=== PATIENT | female | born 2000 | race American Indian/Alaskan Native ===

== ENCOUNTER 2018-12-18 20:31 | Emergency (ER) | payer MEDICAID ==
[2018-12-18 20:43] VITALS: BP 123/73
--- NOTE | 2018-12-18 21:13 | Emergency Department Report ---
Blank Doc - Documentation Documentation: This is a 18-year-old female that presents pelvic pain. Is about 7 weeks preg nant with twins. Reggie any vaginal bleeding. Stated had a normal US yesterday by her OB. This initial assessment/diagnostic orders/clinical plan/treatment(s) is/are subject to change based on patient's health status, clinical progression and re- assessment by fellow clinical providers in the ED. Further treatment and workup at subsequent clinical providers discretion. Patient/guardians urged not to elope from the ED as their condition may be serious if not clinically assessed and managed. Initial orders include: 1- Patient sent to [facility] for further evaluation and treatment 2- labs 3- UA
[2018-12-18 21:44] LABS: Basophils % (Auto) 0.2 % (0.0-1.8); Eosinophils # (Auto) 0.1 K/mm3 (0.0-0.4); Eosinophils % (Auto) 1.5 % (0.0-4.3); Hematocrit 33.8 % (30.3-42.9); Hemoglobin 10.9 gm/dl (10.1-14.3); Lymphocytes # (Auto) 1.4 K/mm3 (1.2-5.4); Lymphocytes % (Auto) 35.5 % (13.4-35.0); Mean Corpuscular HGB Conc 32 % (30-34); Mean Corpuscular Volume 73 fl (79-97); Monocytes # (Auto) 0.3 K/mm3 (0.0-0.8); Monocytes % (Auto) 7.7 % (0.0-7.3); Platelet Count 215 K/mm3 (140-440); Red Blood Count 4.66 M/mm3 (3.65-5.03); Red Cell Distribution Width 15.9 % (13.2-15.2)
[2018-12-18 22:00] LABS: BUN/Creatinine Ratio 15; Blood Urea Nitrogen 9 mg/dL (7-17); Calcium 8.8 mg/dL (8.4-10.2); Hemolysis Index 4
--- NOTE | 2018-12-18 23:00 | Emergency Department Report ---
ED Female HPI - General Chief complaint: Abdominal Pain Stated complaint: ABD PAIN 7 WKS Time Seen by Provider: 12/18/18 21:11 Source: patient Mode of arrival: Ambulatory Limitations: No Limitations - History of Present Illness Initial comments: This is a 18-year-old who presents at approximately 7 weeks gestation with twin gestation. Patient states that pain started today. She states she was seen by her [employer] office yesterday and got her first ultrasound. Patient describes pain as sharp stabbing patient denies dysuria, vaginal bleeding, any abdominal trauma. Patient states she was recently treated for UTI and just completed the antibiotic dose. - Related Data Previous Rx's Medication Instructions Recorded Last Taken Type Acetaminophen [Acetaminophen ER] 650 mg PO Q6H #30 tablet.er 12/18/18 Unknown Rx Pnv No.121/Iron/Folic Acid 1 each PO DAILY #40 tablet 12/18/18 Unknown Rx [ Multivitamin Tablet] Allergies Allergy/AdvReac Type Severity Reaction Status Date / Time No Known Allergies Allergy Unverified 12/18/18 20:41 ED Review of Systems ROS: Stated complaint: ABD PAIN 7 WKS Other details as noted in HPI Constitutional: denies: chills, fever Eyes: denies: eye pain, eye discharge, vision change ENT: denies: ear pain, throat pain Respiratory: denies: cough, shortness of breath, wheezing Cardiovascular: denies: chest pain, palpitations Endocrine: no symptoms reported Gastrointestinal: denies: abdominal pain, nausea, diarrhea Genitourinary: denies: urgency, dysuria, discharge Musculoskeletal: denies: back pain, joint swelling, arthralgia Skin: denies: rash, lesions Neurological: denies: headache, weakness, paresthesias Psychiatric: denies: anxiety, depression Hematological/Lymphatic: denies: easy bleeding, easy bruising ED Past Medical Hx - Past Medical History Hx Hypertension: No Hx CVA: No Hx Heart Attack/AMI: No Hx Congestive Heart Failure: No Hx Diabetes: No Hx Deep Vein Thrombosis: No Hx Pulmonary Embolism: No Hx GERD: No Hx Liver Disease: No Hx Renal Disease: No Hx of Cancer: No Hx Arthritis: No Hx Headaches / Migraines: No Hx Seizures: No Hx Kidney Stones: No Hx Psychiatric Treatment: No Hx Asthma: No Hx COPD: No Hx Tuberculosis: No Hx Dementia: No Hx HIV: No Additional medical history: Right ovarian cyst - Surgical History Past Surgical History?: No Hx Coronary Stent: No Hx Open Heart Surgery: No Hx Pacemaker: No Hx Internal Defibrillator: No Hx Cholecystectomy: No Hx Appendectomy: No Hx Breast Surgery: No Additional Surgical History: - 2017 - Social History Smoking Status: Current Every Day Smoker Substance Use Type: None - Medications Home Medications: Home Medications Medication Instructions Recorded Confirmed Last Taken Type Acetaminophen [Acetaminophen ER] 650 mg PO Q6H #30 tablet.er 12/18/18 Unknown Rx Pnv No.121/Iron/Folic Acid 1 each PO DAILY #40 tablet 12/18/18 Unknown Rx [ Multivitamin Tablet] ED Physical Exam - General Limitations: No Limitations General appearance: alert, in no apparent distress - Head Head exam: Present: atraumatic, normocephalic - Eye Eye exam: Present: normal appearance - ENT ENT exam: Present: mucous membranes moist - Neck Neck exam: Present: normal inspection - Respiratory Respiratory exam: Present: normal lung sounds bilaterally. Absent: respiratory distress - Cardiovascular Cardiovascular Exam: Present: regular rate, normal rhythm. Absent: systolic murmur, diastolic murmur, rubs, gallop - GI/Abdominal GI/Abdominal exam: Present: soft, normal bowel sounds. Absent: distended, tenderness, mass - Extremities Exam Extremities exam: Present: normal inspection - Back Exam Back exam: Present: normal inspection - Neurological Exam Neurological exam: Present: alert, oriented X3 - Psychiatric Psychiatric exam: Present: normal affect, normal mood - Skin Skin exam: Present: warm, dry, intact, normal color. Absent: rash ED Course Vital Signs 12/18/18 12/18/18 20:42 21:05 Temperature 98.9 F 98.9 F Pulse Rate 98 H 84 Respiratory 18 18 Rate Blood Pressure 123/73 123/73 O2 Sat by Pulse 99 99 Oximetry ED Medical Decision Making - Lab Data Result diagrams: 12/18/18 21:21 12/18/18 21:21 Laboratory Last Values WBC 4.0 K/mm3 (4.5-11.0) L 12/18/18 21:21 RBC 4.66 M/mm3 (3.65-5.03) 12/18/18 21:21 Hgb 10.9 gm/dl (10.1-14.3) 12/18/18 21:21 Hct 33.8 % (30.3-42.9) 12/18/18 21:21 MCV 73 fl (79-97) L 12/18/18 21:21 MCH 23 pg (28-32) L 12/18/18 21:21 MCHC 32 % (30-34) 12/18/18 21:21 RDW 15.9 % (13.2-15.2) H 12/18/18 21:21 Plt Count 215 K/mm3 (140-440) 12/18/18 21:21 Lymph % (Auto) 35.5 % (13.4-35.0) H 12/18/18 21:21 [place] % (Auto) 7.7 % (0.0-7.3) H 12/18/18 21:21 Eos % (Auto) 1.5 % (0.0-4.3) 12/18/18 21:21 Baso % (Auto) 0.2 % (0.0-1.8) 12/18/18 21:21 Lymph # 1.4 K/mm3 (1.2-5.4) 12/18/18 21:21 [place] # 0.3 K/mm3 (0.0-0.8) 12/18/18 21:21 Eos # 0.1 K/mm3 (0.0-0.4) 12/18/18 21:21 Baso # 0.0 K/mm3 (0.0-0.1) 12/18/18 21:21 Seg Neutrophils % 55.1 % (40.0-70.0) 12/18/18 21:21 Seg Neutrophils # 2.2 K/mm3 (1.8-7.7) 12/18/18 21:21 Sodium 136 mmol/L (137-145) L 12/18/18 21:21 Potassium 3.6 mmol/L (3.6-5.0) 12/18/18 21:21 Chloride 101.5 mmol/L (98-107) 12/18/18 21:21 Carbon Dioxide 21 mmol/L (22-30) L 12/18/18 21:21 17 mmol/L 12/18/18 21:21 BUN 9 mg/dL (7-17) 12/18/18 21:21 0.6 mg/dL (0.7-1.2) L 12/18/18 21:21 Estimated GFR > 60 ml/min 12/18/18 21:21 15 % 12/18/18 21:21 Glucose 102 mg/dL (65-100) H 12/18/18 21:21 Calcium 8.8 mg/dL (8.4-10.2) 12/18/18 21:21 HCG, Quant 99926 mIU/mL (0-4) H 12/18/18 21:21 - Medical Decision Making 18-year-old female presents with pain and . Patient has history of in 2017 and is currently with twins. Patient also had OB ultrasound yesterday at the doctor's office with normal findings. Discussed the pelvic pain is sometimes normal finding in and came in tolerable with Tylenol. She is comfortable in the ED room, she is in no acute distress. Urinalysis was upper from the ED today as patient was recently just taken antibiotics. Discuss follow-up with Dr. Pereira in 3-5 days. Critical care attestation.: If time is entered above; I have spent that time in minutes in the direct care of this critically ill patient, excluding procedure time. ED Disposition Clinical Impression: Pelvic pain during Disposition: [id number] TO HOME OR SELFCARE Is pt being admited?: No Does the pt Need Aspirin: No Condition: Stable Instructions: Abdominal Pain (ED), (ED) Additional Instructions: Make sure to follow up with the primary care physician as discussed. Take all your medications as you've been prescribed. If you have any worsening symptoms or develop new symptoms please return to ED immediately. Prescriptions: Acetaminophen [Acetaminophen ER] 650 mg PO Q6H #30 tablet.er Pnv No.121/Iron/Folic Acid [ Multivitamin Tablet] 1 each PO DAILY #40 tablet Referrals: JENA PEREIRA MD [Primary Care Provider] - 3-5 Days Forms: Work/School Release Form(ED) Time of Disposition: 23:00
== END 2018-12-18 23:20 | disposition home or self-care (01) ==
LOC: ED 20:31
DX: O26.891 Other specified pregnancy related conditions, first trimester (principal); R10.2 Pelvic and perineal pain; O99.331 Smoking (tobacco) complicating pregnancy, first trimester; Z3A.01 Less than 8 weeks gestation of pregnancy
CPT/HCPCS: 36415; 80048; 84702; 85025; 99283

== ENCOUNTER 2019-04-16 03:48 | Outpatient (CLI) | payer MEDICAID, OTHER ==
[2019-04-16] MEDS ORDERED: LACTATED RINGERS 1,000 ML ONE (04:45)
[2019-04-16] MEDS ORDERED: LACTATED RINGERS 500 ML IV ONE (05:45)
[2019-04-16 06:05] LABS: Basophils % (Auto) 0.2 % (0.0-1.8); Eosinophils # (Auto) 0.1 K/mm3 (0.0-0.4); Eosinophils % (Auto) 1.1 % (0.0-4.3); Hemoglobin 9.4 gm/dl (10.1-14.3); Lymphocytes % (Auto) 24.1 % (13.4-35.0); Mean Corpuscular HGB Conc 31 % (30-34); Mean Corpuscular Volume 72 fl (79-97); Monocytes # (Auto) 0.5 K/mm3 (0.0-0.8); Monocytes % (Auto) 5.8 % (0.0-7.3); Platelet Count 181 K/mm3 (140-440); Red Blood Count 4.19 M/mm3 (3.65-5.03); Red Cell Distribution Width 15.1 % (13.2-15.2)
[2019-04-16 06:19] LABS: Bacteria,Urine 1+ /HPF (Negative); Bilirubin,Urine NEG (Negative); Blood,Urine NEG (Negative); Color,Urine Yellow (Yellow); Mucus,Urine 2+ /HPF; Urobilinogen,Urine < 2.0 mg/dL (<2.0)
[2019-04-16 07:18] VITALS: BP 81/52
== END 2019-04-16 10:00 | disposition left against medical advice (07) ==
LOC: TRG 03:48
PROVIDERS: ATTEND Obstetrics & Gynecology
DX: O26.892 Other specified pregnancy related conditions, second trimester (principal); R10.30 Lower abdominal pain, unspecified; R94.31 Abnormal electrocardiogram [ECG] [EKG]; Z3A.24 24 weeks gestation of pregnancy
CPT/HCPCS: 36415; 59025; 81001; 85025; 86850; 86900; 86901; 93005; 93010; J7120; 96361